=== PATIENT | female | born 1995 | race Caucasian/White ===

== ENCOUNTER 2016-09-13 09:55 | Inpatient (IN) | payer OTHER, MEDICAID ==
[~2016-09-13 09:55] MED LIST: AUGMENTIN 875-11 TAB PO; B-2100 MG PO; BACTRIM DS TAB1 EAC2 PO; BACTRIM DS1 TA1 PO; CARAFATE1 G PO; COLACE100 M1 PO; COLACE100 MG PO; DYNACIN100 M1 PO; ELAVIL75 MG PO; ENTOCORT EC3 MG PO; FEOSOL325 M1 PO; FLUDRICORTISON0.1 MG PO; FROVA2.5 MG PO; GABAPENTIN300 MG PO; GLUCOPHAGE500 MG PO; HUMALOG; HUMALOG INSULIN PUMP; HUMALOG100 U/ML; INSULIN PUMP; IRON INFUSION IV; IRON1 TA1 PO; LANTUS100 U/ML; MINOCYCLINE HC100 M1 PO; MIRALAX17 G1 PO; MONTELUKAST SOD10 M1 PO; MOTRIN600 MG PO; MULTIVITAMIN1 TAB; NEXIUM20 MG PO; NORCO 5/3251 TA1 PO; NORCO 7.5/3251 TA1 PO; NOVOLOG100 U/M; NOVOLOG100 U/M SQ; NOVOLOG100 UNITS/ SC; PAIN RELIEF325 MG PO; PAIN RELIEVER500 M2 PO; PERCOCET 5-3251 EACH PO; PRENATAL CAPLE1 EACH PO; PRILOSEC20 MG PO; SLOW RELEASE I140 MG PO; SPRINTEC1 TAB PO; TYLENOL #31 TA1 PO; TYLENOL325 M1 PO; TYLENOL325 M2 PO; ULTRAM ER100 M1 PO; ULTRAM50 M1 PO; ULTRAM50 MG PO; VITAMIN B-2100 MG PO; ZOFRAN ODT4 MG/UDTAB PO; ZOFRAN4 M2 PO; ZOFRAN4 MG PO
[2016-09-13 11:54] LABS: BASO % 0.1 % (0-2); EOS % 0.3 % (0-7); HCT-HEMATOCRIT 32.2 % (34.0-49.0); HGB-HEMOGLOBIN 10.8 gm/dl (12.0-15.5); IMMATURE GRANULOCYTES ABSOLUTE 0.07 tho/cmm (0-0.03); IMMATURE GRANULOCYTES PERCENT 0.8 % (0-0.3); LYMPH % 20.9 % (20-45); LYMPH ABSOLUTE COUNT 1.8 tho/cmm (0.8-4.5); MCH (MEAN CORPUSCULAR HGB) 27.7 pg (28.0-32.0); MCHC MEAN CORPUSCULAR HGB CONC 33.5 % (32.0-36.0); MCV (MEAN CELL VOLUME) 82.6 fl (82.0-96.0); MEAN PLATELET VOLUME 8.9 cmc (9.4-12.4); MONO % 3.5 % (0-12); MONOCYTE ABSOLUTE COUNT 0.3 tho/cmm (0.0-1.2); NEUTROPHIL ABSOLUTE COUNT 6.6 tho/cmm (1.6-8.0); NEUTROPHIL-AUTOMATED 6.6 tho/cmm (1.6-8.0); NEUTROPHILS % 74.4 % (40-80); PLATELET COUNT 268 tho/cmm (150-450); RED CELL DISTRIBUTION WIDTH 13.6 % (12.4-16.4); WHITE BLOOD COUNT 8.8 tho/cmm (4.0-10.0)
[2016-09-13 12:07] LABS: ALT/SGPT 29 U/L (12-78); AST/SGOT 22 U/L (10-40); CREATININE 0.52 mg/dl (0.50-1.10); eGFR VALUE FOR BLACK >60 mL/Min
[2016-09-15 12:34] LABS: URINE BILIRUBIN NEGATIVE (NEG); URINE BLOOD NEGATIVE (NEG); URINE GLUCOSE (UA) LARGE (NEG); URINE KETONE LARGE (NEG); URINE LEUKOCYTE ESTERASE POSITIVE (NEG); URINE NITRITE NEGATIVE (NEG); URINE PROTEIN NEGATIVE (NEG)
[2016-09-15 12:38] LABS: URINE APPEARANCE CLEAR; URINE COLOR YELLOW; URINE SPECIFIC GRAVITY 1.037 (1.003-1.030)
[2016-09-15 13:53] LABS: ABG CO2 ARTERIAL 18 mmol/L (21-27); ARTERIAL BLD GAS O2 SATURATION 99 % (95-98); ARTERIAL BLOOD GAS PCO2 28 mmHg (32-45); ARTERIAL PO2 113 mmHg (70-100); BICARBONATE 17 mmol/L (21-28); BLOOD GAS BASE EXCESS -6 mM/L (-/+3)
[2016-09-15 14:17] LABS: BASO % 0.3 % (0-2); EOS % 0.4 % (0-7); EOSINOPHIL ABSOLUTE COUNT 0.1 tho/cmm (0.0-0.7); HCT-HEMATOCRIT 32.3 % (34.0-49.0); HGB-HEMOGLOBIN 10.7 gm/dl (12.0-15.5); IMMATURE GRANULOCYTES PERCENT 1.7 % (0-0.3); LYMPH % 25.8 % (20-45); MCH (MEAN CORPUSCULAR HGB) 27.4 pg (28.0-32.0); MCHC MEAN CORPUSCULAR HGB CONC 33.1 % (32.0-36.0); MCV (MEAN CELL VOLUME) 82.8 fl (82.0-96.0); MONO % 7.2 % (0-12); MONOCYTE ABSOLUTE COUNT 0.9 tho/cmm (0.0-1.2); NEUTROPHIL ABSOLUTE COUNT 7.6 tho/cmm (1.6-8.0); NEUTROPHIL-AUTOMATED 7.6 tho/cmm (1.6-8.0); NEUTROPHILS % 64.6 % (40-80); PLATELET COUNT 316 tho/cmm (150-450); RED CELL DISTRIBUTION WIDTH 13.7 % (12.4-16.4); WHITE BLOOD COUNT 11.8 tho/cmm (4.0-10.0)
[2016-09-15 14:21] LABS: KETONE-BETA (WHOLE BLOOD) 0.4 mmol/L (0.0-0.6)
[2016-09-15 14:42] LABS: ALB/GLOB RATIO 0.7 (0.8-2.0); ALBUMIN 2.8 g/dl (3.5-5.0); ALKALINE PHOSPHATASE 86 U/L (33-138); ALT/SGPT 26 U/L (12-78); ANION GAP 16 mmol/L (0-20); AST/SGOT 15 U/L (10-40); BILIRUBIN,TOTAL 0.4 mg/dl (0-1.5); BLOOD UREA NITROGEN 10 mg/dl (6-24); CALCIUM 8.8 mg/dl (8.5-10.5); CARBON DIOXIDE-VENOUS 19 mmol/L (22-32); CHLORIDE 106 mmol/l (96-110); CREATININE 0.58 mg/dl (0.50-1.10); GLUCOSE 330 mg/dL (70-110); POTASSIUM 3.8 mmol/L (3.7-5.1); SODIUM 137 mmol/L (135-145); eGFR VALUE FOR BLACK >60 mL/Min
[2016-09-16 13:55] LABS: ANION GAP 13 mmol/L (0-20); BLOOD UREA NITROGEN 9 mg/dl (6-24); CALCIUM 8.4 mg/dl (8.5-10.5); CARBON DIOXIDE-VENOUS 22 mmol/L (22-32); CHLORIDE 109 mmol/l (96-110); CREATININE 0.56 mg/dl (0.50-1.10); GLUCOSE 207 mg/dL (70-110); POTASSIUM 3.4 mmol/L (3.7-5.1); SODIUM 141 mmol/L (135-145); eGFR VALUE FOR BLACK >60 mL/Min
[2016-09-16 15:16] LABS: BASO % 0.2 % (0-2); EOS % 1.1 % (0-7); EOSINOPHIL ABSOLUTE COUNT 0.1 tho/cmm (0.0-0.7); HCT-HEMATOCRIT 30.5 % (34.0-49.0); HGB-HEMOGLOBIN 10.1 gm/dl (12.0-15.5); IMMATURE GRANULOCYTES ABSOLUTE 0.13 tho/cmm (0-0.03); IMMATURE GRANULOCYTES PERCENT 1.4 % (0-0.3); LYMPH % 25.1 % (20-45); LYMPH ABSOLUTE COUNT 2.3 tho/cmm (0.8-4.5); MCH (MEAN CORPUSCULAR HGB) 27.4 pg (28.0-32.0); MCHC MEAN CORPUSCULAR HGB CONC 33.1 % (32.0-36.0); MCV (MEAN CELL VOLUME) 82.7 fl (82.0-96.0); MONO % 6.7 % (0-12); MONOCYTE ABSOLUTE COUNT 0.6 tho/cmm (0.0-1.2); NEUTROPHIL ABSOLUTE COUNT 5.9 tho/cmm (1.6-8.0); NEUTROPHIL-AUTOMATED 5.9 tho/cmm (1.6-8.0); NEUTROPHILS % 65.5 % (40-80); PLATELET COUNT 319 tho/cmm (150-450); RED BLOOD COUNT 3.69 mil/cmm (4.00-5.20); RED CELL DISTRIBUTION WIDTH 13.7 % (12.4-16.4)
--- NOTE | 2016-09-17 12:18 | NUR ---
RN AT BEDSIDE WHILE PT'S MOTHER PROGRAMS PT'S INSULIN PUMP TO SETTINGS ORDERED PER DR MARTINEZ. PT'S MOTHER HOOKS PUMP BACK UP TO ABDOMINAL SITE LOCATED TO THE MID LEFT ABDOMEN.
[2016-09-17 15:53] LABS: BASO % 0.2 % (0-2); EOS % 0.5 % (0-7); EOSINOPHIL ABSOLUTE COUNT 0.1 tho/cmm (0.0-0.7); HCT-HEMATOCRIT 30.6 % (34.0-49.0); HGB-HEMOGLOBIN 9.9 gm/dl (12.0-15.5); IMMATURE GRANULOCYTES PERCENT 0.8 % (0-0.3); LYMPH % 23.1 % (20-45); MCH (MEAN CORPUSCULAR HGB) 26.8 pg (28.0-32.0); MCHC MEAN CORPUSCULAR HGB CONC 32.4 % (32.0-36.0); MCV (MEAN CELL VOLUME) 82.7 fl (82.0-96.0); MEAN PLATELET VOLUME 8.6 cmc (9.4-12.4); MONO % 7.1 % (0-12); MONOCYTE ABSOLUTE COUNT 0.9 tho/cmm (0.0-1.2); NEUTROPHILS % 68.3 % (40-80); PLATELET COUNT 291 tho/cmm (150-450); RED CELL DISTRIBUTION WIDTH 13.9 % (12.4-16.4); WHITE BLOOD COUNT 13.2 tho/cmm (4.0-10.0)
--- NOTE | 2016-09-17 16:47 | NUR ---
PATIENT WAS UP TO WHEELCHAIR AND IN NICU FROM [id number]. TOLERATED WELL.
--- NOTE | 2016-09-18 08:15 | NUR ---
REPORT GIVEN TO Sayda ENGLISH RN AT 0740. DR. ROTH HERE AND SAW PATIENT. ORDERS RECEIVED.
[2016-09-20] MEDS ORDERED: NORCO 5-325 TA1 EACH PO (10:09)
== END 2016-09-20 12:45 | DRG 765 ==
LOC: LDR 09:55 → OBGD 09-18 07:26
PROVIDERS: Anesthesiology; Obstetrics & Gynecology Maternal & Fetal Medicine; ADMIT Obstetrics & Gynecology Obstetrics
PROC: 10D00Z1 Extraction of Products of Conception, Low, Open Approach (ICD-10-PCS; principal; 2016-09-16)
DX: O60.14X0 Preterm labor third trimester with preterm delivery third trimester, not applicable or unspecified (principal); O14.93 Unspecified pre-eclampsia, third trimester; O24.013 Pre-existing type 1 diabetes mellitus, in pregnancy, third trimester; E10.9 Type 1 diabetes mellitus without complications; O99.013 Anemia complicating pregnancy, third trimester; O40.3XX0 Polyhydramnios, third trimester, not applicable or unspecified; Z3A.30 30 weeks gestation of pregnancy; Z37.0 Single live birth; Z79.4 Long term (current) use of insulin
CPT/HCPCS: J0690; J0702; J1642; J1815; J2590; J3475; J7030